=== PATIENT | male | born 1985 | race American Indian/Alaskan Native ===

== ENCOUNTER 2021-01-10 14:23 | Emergency (ER) | payer SELFPAY ==
[2021-01-10 15:29] VITALS: BP 124/88
--- NOTE | 2021-01-10 15:43 | Emergency Department Report ---
ED Male HPI - General Chief complaint: Urogenital-Male Stated complaint: EXPOSURE Time Seen by Provider: 01/10/21 15:30 Source: patient Mode of arrival: Ambulatory Limitations: No Limitations - History of Present Illness Initial comments: Patient presents with a penile lesion for the last week or so. He states it is very painful. It started as an ulcer. It is on the right aspect of the glans of the penis. He did have unprotected intercourse prior to the onset of the symptoms that he believes that he may have an STD. Patient has no trauma. Has no fevers or chills per there is no cough congestion. Has no abdominal pain or testicular pain. There is no discharge. He has never had symptoms like this before. The pain is a constant burning. - Related Data Previous Rx's Medication Instructions Recorded Last Taken Type HYDROcodone/APAP 5-325 [[place] 1 each PO Q6HR PRN #12 tablet 01/10/21 Unknown Rx 5/325] Valacyclovir HCl [Valtrex] 1,000 mg PO DAILY #20 tablet 01/10/21 Unknown Rx ED Review of Systems ROS: Stated complaint: EXPOSURE Other details as noted in HPI Comment: All other systems reviewed and negative Constitutional: denies: fever Eyes: denies: eye pain ENT: denies: throat pain Respiratory: denies: cough Cardiovascular: denies: chest pain Endocrine: denies: unexplained weight loss Gastrointestinal: denies: abdominal pain Genitourinary: as per HPI Musculoskeletal: denies: back pain Skin: as per HPI Hematological/Lymphatic: denies: easy bruising ED Past Medical Hx - Past Medical History Previous Medical History?: No - Surgical History Past Surgical History?: No - Family History Family history: no significant - Medications Home Medications: Home Medications Medication Instructions Recorded Confirmed Last Taken Type HYDROcodone/APAP 5-325 [[place] 1 each PO Q6HR PRN #12 tablet 01/10/21 Unknown Rx 5/325] Valacyclovir HCl [Valtrex] 1,000 mg PO DAILY #20 tablet 01/10/21 Unknown Rx ED Physical Exam - General Limitations: No Limitations, Other (Pulse ox noted and normal) General appearance: alert, in no apparent distress - Head Head exam: Present: atraumatic, normocephalic - Eye Eye exam: Present: normal appearance, EOMI - ENT ENT exam: Present: normal exam, mucous membranes dry - Neck Neck exam: Present: normal inspection. Absent: meningismus - Respiratory Respiratory exam: Absent: respiratory distress - Cardiovascular Cardiovascular Exam: Absent: JVD - GI/Abdominal GI/Abdominal exam: Present: soft. Absent: tenderness - exam: Present: other (Circular ulcerative lesion noted to the right side of the glans consistent with herpetic lesion) - Extremities Exam Extremities exam: Present: normal capillary refill - Back Exam Back exam: Absent: CVA tenderness (R), CVA tenderness (L) - Neurological Exam Neurological exam: Present: alert, oriented X3, normal gait - Psychiatric Psychiatric exam: Present: normal affect, normal mood - Skin Skin exam: Present: warm, dry ED Course Vital Signs 01/10/21 14:24 Temperature 98.5 F Pulse Rate 94 H Respiratory 18 Rate Blood Pressure 124/88 [Left] O2 Sat by Pulse 99 Oximetry - Reevaluation(s) Reevaluation #1: 01/10/21 15:44 Patient was seen in discharge. Old records reviewed. ED Medical Decision Making - Medical Decision Making Patient presents with a penile lesion. He has evidence of a herpetic lesion. Patient will treat symptomatically. He was started on antiviral medication. Is given analgesics. We have had a long discussion about sexually-transmitted infections and safe sex practices. Patient does not have a discharge that would suggest urethritis. He will not be treated empirically for GC or chlamydia. If he develops symptoms, those can be addressed separately. Critical Care Time: No Critical care attestation.: If time is entered above; I have spent that time in minutes in the direct care of this critically ill patient, excluding procedure time. ED Disposition Clinical Impression: Genital herpes Qualifiers: Herpes simplex infection site: penis Qualified Code(s): A60.01 - Herpesviral infection of penis Disposition: HOME / SELF CARE / HOMELESS Is pt being admited?: No Condition: Stable Instructions: Genital Herpes Additional Instructions: Keep the area clean. Use protection for intercourse. Return for problems. Follow-up with your regular physician for recheck and further management. Have your partner tested and treated. Prescriptions: HYDROcodone/APAP 5-325 [[place] 5/325] 1 each PO Q6HR PRN #12 tablet PRN Reason: Pain Valacyclovir HCl [Valtrex] 1,000 mg PO DAILY #20 tablet Referrals: PRIMARY CARE, [Primary Care Provider] - 3-5 Days
== END 2021-01-10 15:49 | disposition home or self-care (01) ==
LOC: ED 14:23
DX: A60.01 Herpesviral infection of penis (principal)
CPT/HCPCS: 99281